=== PATIENT | male | born 1950 | race Caucasian/White ===

== ENCOUNTER 2017-12-27 12:57 | Inpatient (IN) | payer MEDICARE, OTHER ==
[~2017-12-27 12:57] MED LIST: CEFAZOLIN 1 GM INJ; ETOMIDATE 20 MG INJ
[2017-12-27] MEDS ORDERED: LIDOCAINE 1% (MPF) 30 ML INJ (14:23)
[2017-12-27] MEDS ORDERED: HEPARIN 1000 UNITS/NS (A-LINE) 0 ML (14:24)
[2017-12-27] MEDS ORDERED: PROPOFOL 20 ML ×2 (15:18→16:14)
[2017-12-27] MEDS ORDERED: ROCURONIUM 50 MG INJ ×3 (15:18→17:39)
[2017-12-27] MEDS ORDERED: LIDOCAINE 2% (SDV) 5 ML INJ (15:18)
[2017-12-27] MEDS: HEPARIN 1000 UNITS/ML 10 ML INJ (16:01)
[2017-12-27] MEDS ORDERED: HEPARIN 1000 UNITS/ML 10 ML INJ (16:50)
[2017-12-27] MEDS: GELATIN SIZE 100 SPONGE (16:53)
[2017-12-27] MEDS: THROMBIN 5000 UNIT VIAL ×2 (16:53→17:01)
[2017-12-27] MEDS: HEMOSTATIC MATRIX SYG ZFS (17:01)
[2017-12-27] MEDS: IOHEXOL 300MG/ML 30 ML BTL (17:27)
[2017-12-27] MEDS ORDERED: ONDANSETRON 4 MG INJ (17:40)
[2017-12-27] MEDS ORDERED: DEXAMETHASONE 4 MG/ML 1 ML INJ (17:40)
[2017-12-27] MEDS ORDERED: EPHEDrine SULFATE 50 MG/5 ML SYG (17:41)
[2017-12-27] MEDS ORDERED: FENTAnyl 50 MCG/ML VIAL (17:54)
[2017-12-27] MEDS ORDERED: SUGAMMADEX SODIUM 200 MG/2 ML VIAL IV (18:00)
[2017-12-27] MEDS ORDERED: ESMOLOL 10 ML (18:13)
[2017-12-27] MEDS ORDERED: LABETALOL HCL 20MG INJ (18:15)
[2017-12-27] MEDS ORDERED: hydrALAzine 20 MG INJ ×2 (18:19→19:02)
[2017-12-27] MEDS ORDERED: GLUCOSE GEL 15 GRAM TUBE PO ×2 (19:00)
[2017-12-27] MEDS ORDERED: ONDANSETRON 4 MG INJ IV (19:00)
[2017-12-27] MEDS ORDERED: GLUCOSE GEL 15 GRAM TUBE BUCCAL (19:00)
[2017-12-27] MEDS ORDERED: FENTAnyl 50 MCG/ML VIAL IV (19:00)
[2017-12-27] MEDS ORDERED: DEXTROSE 50% 50 ML SYRINGE IV ×2 (19:00)
[2017-12-27] MEDS ORDERED: GLUCAGON 1 MG INJ IM (19:00)
[2017-12-27] MEDS: HYDROmorphONE 0.5 MG/0.5 ML SYG IV (20:21)
[2017-12-27] MEDS: 1/2 NS + KCL 20 MEQ 1,000 ML IV (20:45)
[2017-12-27] MEDS: FAMOTIDINE 20 MG TAB PO (22:56)
[2017-12-27] MEDS: ATORVASTATIN 80 MG TAB PO (22:56)
[2017-12-27] MEDS: TAMSULOSIN (SR) 0.4 MG CAP PO (22:56)
[2017-12-27] MEDS: hydrALAzine 20 MG INJ IV (23:00)
[2017-12-28] MEDS: morphine 10 MG INJ IV ×5 (00:34→20:26)
[2017-12-28] MEDS ORDERED: ONDANSETRON 4 MG INJ (08:16)
[2017-12-28] MEDS: CLOPIDOGREL 75 MG TAB PO (09:09)
[2017-12-28] MEDS: SERTRALINE 50 MG TAB PO (09:09)
[2017-12-28] MEDS: MELOXICAM 15 MG TAB PO (09:10)
[2017-12-28] MEDS: GLIMEPIRIDE 2 MG TAB PO (09:10)
[2017-12-28] MEDS: metFORMIN 500 MG TAB PO ×2 (09:10→17:42)
[2017-12-28] MEDS: ASPIRIN (EC) 81 MG TAB PO (09:10)
[2017-12-28] MEDS: 1/2 NS + KCL 20 MEQ 1,000 ML IV ×2 (09:11→23:56)
[2017-12-28] MEDS: AMLODIPINE 5 MG TAB PO ×2 (10:54→20:16)
[2017-12-28] MEDS: LOSARTAN 50 MG TAB PO ×2 (10:54→20:15)
[2017-12-28] MEDS ORDERED: niCARdipine-NS 0.1MG/ML DRIP 200 ML (11:25)
[2017-12-28 12:00] LABS: ADD MAN DIFF? NO
[2017-12-28] MEDS: INSULIN ASPART [NOVOLOG] 3 ML PEN SC ×3 (12:05→20:25)
[2017-12-28 12:13] LABS: WHITE BLOOD COUNT 11.2 10^3/ul (4.8-10.8)
[2017-12-28 12:13] LABS: HEMATOCRIT 35.2 % (42.0-52.0); HEMOGLOBIN 12.2 g/dl (14.0-18.0); LYMPHOCYTES # 0.9 10^3/ul (0.8-2.9); LYMPHOCYTES % 8.2 % (15.0-51.0); MEAN CORPUSCULAR HGB CONC 34.7 g/dl (32.0-37.0); MEAN CORPUSCULAR VOLUME 89.6 fl (82.0-101.0); MEAN PLATELET VOLUME 11.1 fl (7.4-10.4); MONOCYTES % 8.5 % (0.0-11.0); NEUTROPHIL # 9.3 10^3/ul (1.6-7.5); NEUTROPHILS % 82.9 % (39.0-77.0); PLATELET COUNT 160 10^3/UL (140-415); RED BLOOD COUNT 3.93 10^6/ul (4.70-6.10); RED CELL DISTRIBUTION WIDTH 12.2 % (11.5-14.5)
[2017-12-28 12:21] LABS: ANION GAP 16 (8-16); BLOOD UREA NITROGEN 14 mg/dl (7-20); CALCIUM 8.5 mg/dl (8.4-10.2); CARBON DIOXIDE 25 mmol/L (21-31); CHLORIDE 99 mmol/L (97-110); CREATININE 0.74 mg/dl (0.61-1.24); GLUCOSE 202 mg/dl (70-220); MAGNESIUM 1.4 mg/dl (1.7-2.5); POTASSIUM 4.1 mmol/L (3.5-5.1); SODIUM 136 mmol/L (135-144)
[2017-12-28 12:41] LABS: HEMOGLOBIN A1C 6.9 % (0-5.9)
[2017-12-28] MEDS: niCARdipine 25 MG in SOD CHLORIDE 0.9% 240 ML IV ×3 (13:01→20:23)
[2017-12-28] MEDS: ONDANSETRON 4 MG INJ IV ×2 (13:07→14:55)
[2017-12-28] MEDS: MAGNESIUM SULFATE 4 GM/100 ML 100 ML IVPB (14:44)
[2017-12-28] MEDS: TAMSULOSIN (SR) 0.4 MG CAP PO (20:15)
[2017-12-28] MEDS: ATORVASTATIN 80 MG TAB PO (20:16)
[2017-12-28] MEDS: FAMOTIDINE 20 MG TAB PO (20:16)
[2017-12-29 05:50] LABS: MAGNESIUM 2.2 mg/dl (1.7-2.5)
[2017-12-29 06:20] LABS: ANION GAP 13 (8-16); BLOOD UREA NITROGEN 17 mg/dl (7-20); CALCIUM 8.5 mg/dl (8.4-10.2); CARBON DIOXIDE 24 mmol/L (21-31); CHLORIDE 104 mmol/L (97-110); CREATININE 0.99 mg/dl (0.61-1.24); GLUCOSE 175 mg/dl (70-220); POTASSIUM 4.3 mmol/L (3.5-5.1); SODIUM 137 mmol/L (135-144)
[2017-12-29] MEDS: GLIMEPIRIDE 2 MG TAB PO (08:35)
[2017-12-29] MEDS: ASPIRIN (EC) 81 MG TAB PO (08:35)
[2017-12-29] MEDS: LOSARTAN 50 MG TAB PO (08:36)
[2017-12-29] MEDS: MELOXICAM 15 MG TAB PO (08:36)
[2017-12-29] MEDS: CLOPIDOGREL 75 MG TAB PO (08:36)
[2017-12-29] MEDS: SERTRALINE 50 MG TAB PO (08:36)
[2017-12-29] MEDS: AMLODIPINE 5 MG TAB PO (08:36)
[2017-12-29] MEDS: metFORMIN 500 MG TAB PO (08:38)
[2017-12-29] MEDS: INSULIN ASPART [NOVOLOG] 3 ML PEN SC (08:44)
[2017-12-29 09:24] LABS: ADD MAN DIFF? NO
[2017-12-29 10:04] LABS: BASOPHILS % 0.1 % (0.0-2.0); EOSINOPHILS % 0.1 % (0.0-7.0); HEMATOCRIT 32.8 % (42.0-52.0); LYMPHOCYTES # 1.2 10^3/ul (0.8-2.9); LYMPHOCYTES % 13.6 % (15.0-51.0); MEAN CORPUSCULAR HEMOGLOBIN 30.6 pg (29.0-33.0); MEAN CORPUSCULAR HGB CONC 33.5 g/dl (32.0-37.0); MEAN CORPUSCULAR VOLUME 91.4 fl (82.0-101.0); MEAN PLATELET VOLUME 11.5 fl (7.4-10.4); MONOCYTES % 11.4 % (0.0-11.0); NEUTROPHIL # 6.8 10^3/ul (1.6-7.5); NEUTROPHILS % 74.4 % (39.0-77.0); PLATELET COUNT 166 10^3/UL (140-415); RED BLOOD COUNT 3.59 10^6/ul (4.70-6.10); RED CELL DISTRIBUTION WIDTH 12.3 % (11.5-14.5)
[2017-12-29 10:04] LABS: WHITE BLOOD COUNT 9.1 10^3/ul (4.8-10.8)
== END 2017-12-29 10:10 | disposition home or self-care (01) | DRG 39 ==
LOC: SDS 12:57 → ICU 19:06
PROVIDERS: Thoracic Surgery (Cardiothoracic Vascular Surgery)
PROC: 03CL0ZZ Extirpation of Matter from Left Internal Carotid Artery, Open Approach (ICD-10-PCS; principal; 2017-12-27 15:00)
PROC: B314YZZ Fluoroscopy of Left Common Carotid Artery using Other Contrast (ICD-10-PCS; 2017-12-27 15:17)
DX: I65.22 Occlusion and stenosis of left carotid artery (principal); I16.0 Hypertensive urgency; E11.9 Type 2 diabetes mellitus without complications; E78.5 Hyperlipidemia, unspecified; N40.0 Benign prostatic hyperplasia without lower urinary tract symptoms; K21.9 Gastro-esophageal reflux disease without esophagitis; Z86.73 Personal history of transient ischemic attack (TIA), and cerebral infarction without residual deficits
CPT/HCPCS: 71045; 75665; 80048; 82962; 83036; 83735; 85025; 86850; 86900; 86901; 88304; 88307